=== PATIENT | male | born 1960 | race African-American/Black ===

== ENCOUNTER 2019-02-15 13:22 | Emergency (ER) | payer BC, OTHER ==
[~2019-02-15] VITALS: Ht 182.9 cm; Wt 77.0 kg
[2019-02-15 13:28] VITALS: BP 170/85
== END 2019-02-15 13:47 | disposition left against medical advice (07) ==
LOC: ER 13:22
DX: Z53.21 Procedure and treatment not carried out due to patient leaving prior to being seen by health care provider (principal)